=== PATIENT | male | born 1985 | race American Indian/Alaskan Native ===

== ENCOUNTER 2017-10-20 18:45 | Emergency (ER) | payer OTHER ==
[2017-10-20 19:02] VITALS: BP 127/75
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
== END 2017-10-20 20:33 | disposition home or self-care (01) ==
LOC: ED 18:45
DX: S39.012A Strain of muscle, fascia and tendon of lower back, initial encounter (principal); V89.2XXA Person injured in unspecified motor-vehicle accident, traffic, initial encounter; Y93.89 Activity, other specified; Y92.89 Other specified places as the place of occurrence of the external cause; Y99.8 Other external cause status
CPT/HCPCS: 99282